=== PATIENT | female | born 1995 | race Caucasian/White ===

== ENCOUNTER 2018-04-10 12:18 | Emergency (ER) | payer SELFPAY ==
[2018-04-10] MEDS ORDERED: HYDROmorphone 0.5 MG/0.5 ML Syringe IM ONE (12:56)
--- NOTE | 2018-04-10 13:27 | CR ---
Left elbow is intact. No joint effusion. Fractures of the midshaft of the radius and ulna.
--- NOTE | 2018-04-10 13:28 | CR ---
Fractures of the midshaft of the ulna and radius. Slight posterior angulation of the ulna distal to t he fracture site.
--- NOTE | 2018-04-10 13:29 | CR ---
Left humerus is intact.
[2018-04-10] MEDS ORDERED: Ibuprofen 600 MG Tab PO ONE (14:19)
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
== END 2018-04-10 16:06 | disposition home or self-care (01) ==
LOC: JP.ED 12:18
DX: S52.602A Unspecified fracture of lower end of left ulna, initial encounter for closed fracture (principal); S52.502A Unspecified fracture of the lower end of left radius, initial encounter for closed fracture; Z79.899 Other long term (current) drug therapy; F17.210 Nicotine dependence, cigarettes, uncomplicated; F41.9 Anxiety disorder, unspecified; X50.9XXA Other and unspecified overexertion or strenuous movements or postures, initial encounter
CPT/HCPCS: 29125; 73060; 73070; 73090; 96372; 99284; A9270; J1170